=== PATIENT | male | born 1990 | race Two or more races ===

== ENCOUNTER 2016-10-30 08:11 | Emergency (ER) | payer BC ==
[~2016-10-30] VITALS: Ht 180.3 cm; Wt 152.7 kg
[2016-10-30 08:22] VITALS: BP 146/95
[2016-10-30] MEDS ORDERED: IBUPROFEN 200 MG TABLET ONE (10:17)
[2016-10-30] MEDS ORDERED: OXYcodone/APAP 5/325MG TABLET ONE (10:17)
[2016-10-30] MEDS ORDERED: DIAZEPAM 5 MG TABLET ONE (10:17)
[2016-10-30] MEDS ORDERED: IBUPROFEN 200 MG TABLET PO ONE (10:30)
[2016-10-30] MEDS ORDERED: OXYcodone/APAP 5/325MG TABLET PO ONE (10:30)
[2016-10-30] MEDS ORDERED: DIAZEPAM 5 MG TABLET PO ONE (10:30)
== END 2016-10-30 12:31 | disposition home or self-care (01) ==
LOC: ED 10:02
DX: S39.012A Strain of muscle, fascia and tendon of lower back, initial encounter (principal); S33.5XXA Sprain of ligaments of lumbar spine, initial encounter; X58.XXXA Exposure to other specified factors, initial encounter; Y93.89 Activity, other specified; Y92.009 Unspecified place in unspecified non-institutional (private) residence as the place of occurrence of the external cause; Y99.8 Other external cause status
CPT/HCPCS: 72110; 99284

== ENCOUNTER 2017-05-18 15:11 | Emergency (ER) | payer BC, OTHER ==
[~2017-05-18] VITALS: Ht 180.3 cm; Wt 145.5 kg
[2017-05-18 15:46] VITALS: BP 132/81
[2017-05-18] MEDS ORDERED: DIAZEPAM 5 MG TABLET PO ONE (16:00)
[2017-05-18] MEDS ORDERED: KETOROLAC 30 MG/1 ML IM ONE (16:00)
[2017-05-18] MEDS ORDERED: KETOROLAC 30 MG/1 ML ONE (16:47)
[2017-05-18] MEDS ORDERED: METHOCARBAMOL 750 MG TABLET ONE (16:47)
[2017-05-18] MEDS ORDERED: METHOCARBAMOL 750 MG TABLET PO ONE (17:00)
[2017-05-18] MEDS ORDERED: HYDROcodone/APAP 5/325 TABLET ONE (17:50)
[2017-05-18] MEDS ORDERED: HYDROcodone/APAP 5/325 TABLET PO ONE (18:00)
== END 2017-05-18 19:02 | disposition home or self-care (01) ==
LOC: ED 18:50
DX: S39.012A Strain of muscle, fascia and tendon of lower back, initial encounter (principal); M62.830 Muscle spasm of back; X58.XXXA Exposure to other specified factors, initial encounter; Y93.89 Activity, other specified; Y92.89 Other specified places as the place of occurrence of the external cause; Y99.8 Other external cause status
CPT/HCPCS: 96372; 99283; J1885

== ENCOUNTER 2020-12-14 05:33 | Emergency (ER) | payer OTHER ==
[~2020-12-14] VITALS: Ht 180.3 cm; Wt 141.0 kg
[2020-12-14 05:35] VITALS: BP 125/78
--- NOTE | 2020-12-14 05:57 | NUR ---
pt presents to ed with swollen ankle with pain. pt tripped on child's toy. pt resting on gurney.
--- NOTE | 2020-12-14 06:50 | NUR ---
REPORT OF PT FROM CARA VICTOR AND ASSUMING CARE OF PT AT THIS TIME.
--- NOTE | 2020-12-14 06:50 | NUR ---
gave report to CARA Thacker
--- NOTE | 2020-12-14 07:22 | NUR ---
pt placed in air stirrup. pt d/c with d/c summary and crutches and verbalizes understanding of home care. pt denies any other needs and ambulates to registration desk with crutches with no assistance. pt denies any other needs pertaining to this visit.
== END 2020-12-14 07:24 | disposition home or self-care (01) ==
LOC: ED 06:16
DX: S93.492A Sprain of other ligament of left ankle, initial encounter (principal); S93.412A Sprain of calcaneofibular ligament of left ankle, initial encounter; X50.1XXA Overexertion from prolonged static or awkward postures, initial encounter; Y93.89 Activity, other specified; Y92.009 Unspecified place in unspecified non-institutional (private) residence as the place of occurrence of the external cause; Y99.8 Other external cause status
CPT/HCPCS: 99283